=== PATIENT | male | born 1930 | race Caucasian/White ===

== ENCOUNTER 2016-12-03 22:37 | Emergency (ER) | payer OTHER ==
--- NOTE | 2016-12-04 01:36 | ED CLINICAL REPORT ---
Clinical Report - Physicians/Mid Levels [facility] [address] [place] [address] 12/03/2016 22:41 Patient: KYLEE HENSON Time Seen: 22:54; initial patient contact. Arrived- By ambulance. Historian- patient. HISTORY OF PRESENT ILLNESS Chief Complaint: DECREASED MENTAL STATUS. This started just prior to arrival and is now gone. The patient has "felt strange". halfway resident. History of chronic dementia. No weakness, numbness or recent fall. No difficulty walking. Usually has normal mobility. Similar symptoms previously: None. Recent medical care: Not recently seen/assessed. REVIEW OF SYSTEMS No fever, headache, head injury, dizziness or chest pain. No difficulty breathing, blurred vision, abdominal pain, nausea or diarrhea. No vomiting. All systems otherwise negative, except as recorded above. PAST HISTORY ( CAD. SURGERIES: Demand Pacemaker.). SOCIAL HISTORY Former smoker. No alcohol use or drug use. ADDITIONAL NOTES The nursing notes have been reviewed. PHYSICAL EXAM Vital Signs: 12/03/2016 22:54 BP: 105/52. HR: 74. RR: 18. O2 saturation: 96%. Temp: 98.2 F. Have been reviewed. Hypotensive. Heart rate normal. Respiratory rate normal. Temperature normal. Oxygen saturation normal. Appearance: Alert. No acute distress. Eyes: Pupils equal, round and reactive to light. ENT: Moist mucous membranes. Pharynx normal. Neck: Normal inspection. CVS: Normal heart rate and rhythm. Heart sounds normal. Respiratory: No respiratory distress. Breath sounds normal. Abdomen: Soft and nontender. No organomegaly. The bowel sounds are not abnormal. Skin: Skin warm and dry. Normal skin color. No rash. Extremities: No calf tenderness. No lower extremity edema. Neuro: Alert. The patient is disoriented to time. Alertness is not decreased. Verbal response is not abnormal. Response to pain is not abnormal. No aphasia. No dysphasia or dysarthria. No cerebellar findings. No motor deficit. No sensory deficit. Reflexes normal. LABS, X-RAYS, AND EKG EKG: EKG time: (2300). Rate: 70. Ventricular paced rhythm. Wide QRS- intraventricular conduction delay. Left axis deviation. Normal ST and T waves. Prolonged QTc (514). Prior EKG unavailable. The study has been interpreted contemporaneously by me. The study has been independently viewed by me. The EKG appears to be a good tracing. Interpretation time: 2300. Laboratory Tests: UA-Culture if indicated: (JARED: 12/04/2016 01:17) ( MsgRcvd 12/04/2016 01:32) Final results Test Result Flag Units (Reference) URINE COLOR YELLOW URINE APPEARANCE CLEAR URINE GLUCOSE TRACE (NEGATIVE) URINE BILIRUBIN NEGATIVE (NEGATIVE) URINE KETONE TRACE (NEGATIVE) URINE SPECIFIC GRAVITY 1.020 (1.010-1.030) URINE PH 6.0 (5.0-8.0) URINE PROTEIN NEGATIVE (NEGATIVE) URINE UROBILINOGEN 4.0 EU/dL (0.2-1.0) The urobilinogen reagent area may react with interferingsubstances known to react with Giles's reagent such asp-aminosalicylic acid and sulfonamides. Atypical colorreactions may be obtained in the presence of highconcentrations of p-aminobenzoic acid. The absence ofurobilinogen cannot be determined with this test. URINE NITRITE NEGATIVE (NEGATIVE) URINE BLOOD NEGATIVE (NEGATIVE) URINE LEUK ESTERASE NEGATIVE (NEGATIVE) URINE RBC 0-1 rbc/hpf (0-1) URINE WBC 0-1 wbc/hpf (0-1) URINE EPITHELIAL CELLS 0-1 EPI/hpf (0-5) URINE BACTERIA NONE SEEN (NONE SEEN) URINE COMMENT CULT NOT INDICATED URINE CULTURES ARE SET-UP BASED ON THE FOLLOWING CRITERIA:POSITIVE NITRITEPOSITIVE LEUKOCYTE ESTERASEGREATER THAN 10 WHITE BLOOD CELLSMODERATE (2+) OR GREATER BACTERIA CBC w Diff: (JARED: 12/04/2016 00:35) ( MsgRcvd 12/04/2016 00:44) Final results Test Result Flag Units (Reference) WHITE BLOOD COUNT 5.3 K/uL (4.5-11.5) RED BLOOD COUNT 3.49 L M/uL (4.50-5.90) HEMOGLOBIN 10.3 L gm/dL (13.5-17.5) HEMATOCRIT 31.4 L % (41.0-53.0) MEAN CELL VOLUME 90 fL (80-100) MEAN CORPUSCULAR HGB 30 pg (26-34) MEAN CORPUSCULAR HGB CONC 33 g/dL (31-37) RED CELL DISTRIBUTION WIDTH 15.9 H % (11.6-14.8) PLATELET COUNT 143 L K/uL (150-400) NEUTROPHIL % 73.8 % (50-75) LYMPH % 13.8 L % (25-40) MONO % 11.2 % (3-14) EOSINOPHIL % 0.8 % (0-4) BASOPHIL % 0.4 % (0-2) CMP: (JARED: 12/04/2016 00:35) ( MsgRcvd 12/04/2016 00:58) Final results Test Result Flag Units (Reference) GLUCOSE 174 H mg/dL (70-110) BUN 18 mg/dL (7-18) CREATININE 1.6 H mg/dL (0.6-1.3) Estimated GFR 43.67 mL/min Estimated GFR- 52.93 mL/min Note: Persistent reduction over 3 months in eGFR<60 mL/min/1.73 m2 defines CKD. Patients with eGFR values>=60 mL/min/1.73 m2 may also have CKD if evidence ofpersistent proteinuria. Additional information may be foundat www.kidney.org. SODIUM 141 mmol/L (136-145) POTASSIUM 4.2 mmol/L (3.5-5.1) CHLORIDE 102 mmol/L (98-107) CARBON DIOXIDE 27 mmol/L (21-32) CALCIUM 9.0 mg/dL (8.5-10.1) TOTAL PROTEIN 6.4 g/dL (6.4-8.2) ALBUMIN 3.1 L g/dL (3.3-5.0) BILIRUBIN, TOTAL 0.9 mg/dL (0.0-1.0) ALKALINE PHOSPHATASE 81 U/L (46-116) AST (SGOT) 14 L U/L (15-37) ALT (SGPT) 19 U/L (12-78) . PROGRESS AND PROCEDURES Disposition: Discharged to residential in good and improved condition. Condition: good. CLINICAL IMPRESSION Acute mental status change with confusion. INSTRUCTIONS Your Current Medications: CONTINUE TAKING THE FOLLOWING MEDICATIONS: Flomax Oral. Lasix Oral. Ranitidine HCl Oral. Spironolactone Oral. Warfarin Sodium Oral. Follow-up: Follow up with your doctor in about two days. Call for an appointment. Blood pressure screening was not performed during this visit because the patient has an active diagnosis of hypertension. (Electronically signed by Aldair Upton Dr. 12/04/2016 1:37)
--- NOTE | 2016-12-04 01:36 | ED ORDER SUMMARY ---
..... Patient: KYLEE HENSON OrderSheet [facility] VisitID: [id number] [place] [address] 86y, M Registration Date/Time: 12/03/2016 ORDER SHEET Weight: 81.6 kg (estimated) Allergies: No Known Drug Allergy GENERAL ORDERS: Lubrication Equipment Servicer (Continuous) (22:54 12/03/2016 SBalde R.N. per protocol) (22:54 SBalde R.N.) Pulse oximeter (22:54 12/03/2016 SBalde R.N. per protocol) (22:54 SBalde R.N.) EKG - ER Stat (22:54 12/03/2016 SBalde R.N. per protocol) (23:03 SRedmond) CBC w Diff Urgent (23:36 12/03/2016 Megan Brown) (Ack 23:37 CHagerty ER Diabetes Manager) (0:40 JQuivey R.N.) CMP Urgent (23:36 12/03/2016 Megan Brown) (Ack 23:37 Bibiana ER Diabetes Manager) (0:40 JQuivey R.N.) UA-Culture if indicated Urgent (23:36 12/03/2016 Megan Brown) (Ack 23:37 CHagsarina ER Diabetes Manager) (1:19 EInderbitzen R.N.) MEDICATION ORDERS: IV FLUIDS: IV Saline Lock (22:54 12/03/2016 SBalde R.N. per protocol) (22:54 SBalde R.N.) ORDER SHEET NOTES: [Electronically signed by Aldair Utpon Dr. (01:37 12/04/2016)] [Electronically signed by Markel Smiley R.N. (:12/04/2016)] [Electronically locked/signed by Marekl Smiley R.N. (12/04/2016)]
--- NOTE | 2016-12-04 01:36 | ED NURSING NOTES ---
Clinical Report - Nurses [facility] [address] [place] [address] 12/03/2016 22:41 Patient: KYLEE HENSON TRIAGE Triage time 22:54 Dec 03 2016. Acuity: LEVEL 2. Chief Complaint: ALTERED MENTAL STATUS. Alert. No acute distress. --22:58 Kathy Olivera R.N. 22:54 12/03/16. BP: 105/52. HR: 74. RR: 18. O2 saturation: 96%. Temp: 98.2 F. Pain level now 0/10. --22:58 Kathy Olivera R.N. Weight: 81.6 kg estimated. Height/Length: 72 inches Estimated. BMI: 24.4. --22:54 Kathy Olivera R.N. Medications Ranitidine HCl Oral. --23:37 Kathy Olivera R.N. Flomax Oral. --23:38 Kathy Olivera R.N. Lasix Oral. --23:38 Kathy Olivera R.N. Warfarin Sodium Oral. --23:39 Kathy Olivera R.N. Spironolactone Oral. --23:39 Kathy Olivera R.N. Allergies No Known Drug Allergy. --23:39 Kathy Olivera R.N. History Arrived by EMS. Historian: patient. ( Alert to self and . "I pulled the button on the wall because I felt funny and strange". Denies any pain at this time. "I felt something running through my veins".). This started just prior to arrival. Treatment SIGNAL MANAGER: None. SOCIAL HX: Former smoker. No drug use. No infectious disease exposure. FALL RISK ASSESSMENT: Fall risk assessment completed. No fall risk identified. NUTRITIONAL RISK ASSESSMENT: The nutritional risk assessment revealed no deficiencies. FUNCTIONAL ASSESSMENT: Functional assessment: no impairments noted. LEARNING NEEDS ASSESSMENT: The learning needs assessment revealed no barriers. SKIN INTEGRITY ASSESSMENT: Skin integrity risk assessment completed. No skin integrity risk identified. --22:58 Kathy Olivera R.N. PROBLEMS: CAD. --23:41 Kathy Olivera R.N. ADDITIONAL SURGERIES: Demand Pacemaker. --23:41 Kathy Olivera R.N. Interventions ID band on patient. To room. --22:58 Kathy Olivera R.N. PHYSICAL ASSESSMENT To room via stretcher. RESPIRATORY: Respirations not labored. CVS: Cardiac rhythm: atrial pacing. Capillary refill less than 2 seconds. --23:34 Kathy Olivera R.N. NURSING PROGRESS NOTES 22:54 12/03/2016 Site #1 started prior to arrival by EMS via IV in the right hand with an 20g angiocath. --22:54 Kathy Olivera R.N. EKG time: (2300). EKG was performed by a tech and shown to the ED physician. --22:59 Kathy Olivera R.N. ( ER Provider at bedside.). --23:37 Kathy Olivera R.N. Care transferred and report given (JORGE LUIS Comer). --23:41 Kathy Olivera R.N. 00:38. Patient ID band checked for patient name and birthdate: patient confirmed. Blood samples drawn from the right antecubital space with syringe and 22g butterfly by nurse ; labeled in presence of the patient and sent to lab: rainbow set. --00:42 Johann Yusuf R.N. 00:55 12/04/16. BP: 114/48. HR: 70. RR: 19. O2 saturation: 98% on room air. --00:58 Johann Yusuf R.N. 00:58 Patient reports still unable to void. The patient is calm and resting quietly. GENERAL / NEURO / PSYCH: Patient is calm and cooperative. Affect appears normal. Alert. Oriented X 4. RESPIRATORY: No respiratory distress. SKIN: Skin is warm and dry. --00:58 Johann Yusuf R.N. 01:19 12/04/16. Patient ID band checked for patient name and birthdate: patient confirmed. Instructions provided to collect clean catch urine and patient verbalized understanding. Clean catch urine collected with return of shoaib-colored clear urine; sample sent to lab for urinalysis. Specimen labeled in the presence of the patient. --01:19 Carolann Escobar R.N. electrician wiring, pulse oximeter and NIBP monitor placed on patient. Patient gowned. Head of bed elevated. Two patient identifiers checked. Call light placed in reach. Side rails up x 2. Bed placed in lowest position. Brakes of bed on. --01:49 Markel Smiley R.N. ( Non-emergent transport called. ETA 2.5 hours.). --01:51 Markel Smiley R.N. ( ROunded on patient. INformed him of the wait for his transportation.). --01:57 Markel Smiley R.N. 02:22 12/04/2016 IV Saline Lock Drip IV Discontinued: STOPPED upon discharge. --02:22 Markel Smiley R.N. DISPOSITION / DISCHARGE 02:21 12/04/2016 Site #1 removed upon discharge. Manual pressure and bandage applied. --02:21 Markel Smiley R.N. Departure time: 02:23. Ability to learn limited by poor comprehension and intellectual disability; teaching performed with the patient. Discharge instructions provided and reviewed (EMS and sent to patient's facility). Reviewed warnings. Treatments reviewed. Reviewed referrals for followup. Written instructions provided in Serbian. The patient was discharged (assistance living/nursing facility) and accompanied by EMS. He left the Emergency Department via ambulance and on a stretcher. Driving (EMS). --02:24 Markel Smiley R.N. Condition at departure: stable. --02:24 Markel Smiley R.N. 02:23 12/04/16. BP: 114/48. HR: 77. RR: 20. O2 saturation: 96% on room air. Florentino-Murcia pain scale: 0/10. --02:25 Markel Smiley R.N. Locked/Released at 12/04/2016 2:28 by Markel Smiley R.N.
--- NOTE | 2016-12-04 01:36 | ED ORDER SUMMARY ---
..... Patient: KYLEE HENSON OrderSheet [facility] VisitID: [id number] [place] [address] 86y, M Registration Date/Time: 12/03/2016 ORDER SHEET Weight: 81.6 kg (estimated) Allergies: No Known Drug Allergy GENERAL ORDERS: Cement Despatch Operator (Continuous) (22:54 12/03/2016 SBalde R.N. per protocol) (22:54 SBalde R.N.) Pulse oximeter (22:54 12/03/2016 SBalde R.N. per protocol) (22:54 SBalde R.N.) EKG - ER Stat (22:54 12/03/2016 SBalde R.N. per protocol) (23:03 SRedmond) CBC w Diff Urgent (23:36 12/03/2016 Megan Brown) (Ack 23:37 CHagerty ER Vet Tech) (0:40 JQuivey R.N.) CMP Urgent (23:36 12/03/2016 Megan Brown) (Ack 23:37 Bibiana ER Vet Tech) (0:40 JQuivey R.N.) UA-Culture if indicated Urgent (23:36 12/03/2016 Megan Brown) (Ack 23:37 CHagsarina ER Vet Tech) (1:19 EInderbitzen R.N.) MEDICATION ORDERS: IV FLUIDS: IV Saline Lock (22:54 12/03/2016 SBalde R.N. per protocol) (22:54 SBalde R.N.) ORDER SHEET NOTES: [Electronically signed by Aldair Upton Dr. (01:37 12/04/2016)] [Electronically signed by Markel Smiley R.N. (:12/04/2016)] [Electronically locked/signed by Markel Smiley R.N. (12/04/2016)]
--- NOTE | 2016-12-04 01:36 | ED NURSING NOTES ---
Clinical Report - Nurses [facility] [address] [place] [address] 12/03/2016 22:41 Patient: KYLEE HENSON TRIAGE Triage time 22:54 Dec 03 2016. Acuity: LEVEL 2. Chief Complaint: ALTERED MENTAL STATUS. Alert. No acute distress. --22:58 Kathy Olivera R.N. 22:54 12/03/16. BP: 105/52. HR: 74. RR: 18. O2 saturation: 96%. Temp: 98.2 F. Pain level now 0/10. --22:58 Kathy Olivera R.N. Weight: 81.6 kg estimated. Height/Length: 72 inches Estimated. BMI: 24.4. --22:54 Kathy Olivera R.N. Medications Ranitidine HCl Oral. --23:37 Kathy Olivera R.N. Flomax Oral. --23:38 Kathy Olivera R.N. Lasix Oral. --23:38 Kathy Olivera R.N. Warfarin Sodium Oral. --23:39 Kathy Olivera R.N. Spironolactone Oral. --23:39 Kathy Olivera R.N. Allergies No Known Drug Allergy. --23:39 Kathy Olivera R.N. History Arrived by EMS. Historian: patient. ( Alert to self and . "I pulled the button on the wall because I felt funny and strange". Denies any pain at this time. "I felt something running through my veins".). This started just prior to arrival. Treatment DIRECTOR QUALITY SYSTEMS: None. SOCIAL HX: Former smoker. No drug use. No infectious disease exposure. FALL RISK ASSESSMENT: Fall risk assessment completed. No fall risk identified. NUTRITIONAL RISK ASSESSMENT: The nutritional risk assessment revealed no deficiencies. FUNCTIONAL ASSESSMENT: Functional assessment: no impairments noted. LEARNING NEEDS ASSESSMENT: The learning needs assessment revealed no barriers. SKIN INTEGRITY ASSESSMENT: Skin integrity risk assessment completed. No skin integrity risk identified. --22:58 Kathy Olivera R.N. PROBLEMS: CAD. --23:41 Kathy Olivera R.N. ADDITIONAL SURGERIES: Demand Pacemaker. --23:41 Kathy Olivera R.N. Interventions ID band on patient. To room. --22:58 Kathy Olivera R.N. PHYSICAL ASSESSMENT To room via stretcher. RESPIRATORY: Respirations not labored. CVS: Cardiac rhythm: atrial pacing. Capillary refill less than 2 seconds. --23:34 Kathy Olivera R.N. NURSING PROGRESS NOTES 22:54 12/03/2016 Site #1 started prior to arrival by EMS via IV in the right hand with an 20g angiocath. --22:54 Kathy Olivera R.N. EKG time: (2300). EKG was performed by a tech and shown to the ED physician. --22:59 Kathy Olivera R.N. ( ER Provider at bedside.). --23:37 Kathy Olivera R.N. Care transferred and report given (JORGE LUIS Comer). --23:41 Kathy Olivera R.N. 00:38. Patient ID band checked for patient name and birthdate: patient confirmed. Blood samples drawn from the right antecubital space with syringe and 22g butterfly by nurse ; labeled in presence of the patient and sent to lab: rainbow set. --00:42 Johann Yusuf R.N. 00:55 12/04/16. BP: 114/48. HR: 70. RR: 19. O2 saturation: 98% on room air. --00:58 Johann Yusuf R.N. 00:58 Patient reports still unable to void. The patient is calm and resting quietly. GENERAL / NEURO / PSYCH: Patient is calm and cooperative. Affect appears normal. Alert. Oriented X 4. RESPIRATORY: No respiratory distress. SKIN: Skin is warm and dry. --00:58 Johann Yusuf R.N. 01:19 12/04/16. Patient ID band checked for patient name and birthdate: patient confirmed. Instructions provided to collect clean catch urine and patient verbalized understanding. Clean catch urine collected with return of shoaib-colored clear urine; sample sent to lab for urinalysis. Specimen labeled in the presence of the patient. --01:19 Carolann Escobar R.N. teletypesetter monitor, pulse oximeter and NIBP monitor placed on patient. Patient gowned. Head of bed elevated. Two patient identifiers checked. Call light placed in reach. Side rails up x 2. Bed placed in lowest position. Brakes of bed on. --01:49 Markel Smiley R.N. ( Non-emergent transport called. ETA 2.5 hours.). --01:51 Markel Smiley R.N. ( ROunded on patient. INformed him of the wait for his transportation.). --01:57 Markel Smiley R.N. 02:22 12/04/2016 IV Saline Lock Drip IV Discontinued: STOPPED upon discharge. --02:22 Markel Smiley R.N. DISPOSITION / DISCHARGE 02:21 12/04/2016 Site #1 removed upon discharge. Manual pressure and bandage applied. --02:21 Markel Smiley R.N. Departure time: 02:23. Ability to learn limited by poor comprehension and intellectual disability; teaching performed with the patient. Discharge instructions provided and reviewed (EMS and sent to patient's facility). Reviewed warnings. Treatments reviewed. Reviewed referrals for followup. Written instructions provided in Luxembourgish. The patient was discharged (assistance living/nursing facility) and accompanied by EMS. He left the Emergency Department via ambulance and on a stretcher. Driving (EMS). --02:24 Markel Smiley R.N. Condition at departure: stable. --02:24 Markel Smiley R.N. 02:23 12/04/16. BP: 114/48. HR: 77. RR: 20. O2 saturation: 96% on room air. Florentino-Murcia pain scale: 0/10. --02:25 Markel Smiley R.N. Locked/Released at 12/04/2016 2:28 by Markel Smiley R.N.
--- NOTE | 2016-12-04 02:30 | ED MED RECONCILIATION SUMMARY ---
Patient: KYLEE HENSON Medication Reconciliation Report [facility] VisitID: [id number] [address] [place] [address] 86y, M Registration Date/Time: 12/03/2016 Weight: 81.6 kg Height/Length: 72 in. BMI: 24.4 ALLERGIES: No Known Drug Allergy The patient's Home Medications are listed below: CONTINUE TAKING THE FOLLOWING MEDICATIONS: Flomax Oral Lasix Oral Ranitidine HCl Oral Spironolactone Oral Warfarin Sodium Oral The source(s) of the original Home Medication information: Not obtained. The following Medications were given to the patient in the Emergency Department: None. The following Medications were prescribed to the patient: None.
--- NOTE | 2016-12-04 02:30 | ED MAR SUMMARY ---
..... Medication Administration Record [facility] [address] [place], [place] [id number] Patient: KYLEE HENSON Visit ID: [id number] 86y, M Weight: 81.6 kg Height/Length: 72 in BMI: 24.4 ALLERGIES: No Known Drug Allergy
--- NOTE | 2016-12-04 02:30 | ED DISCHARGE INSTRUCTIONS ---
Patient: KYLEE HENSON General Instructions [facility] VisitID: [id number] [place] [address] 86y, M Registration Date/Time: 12/03/2016 Acute mental status change with confusion. INSTRUCTIONS Your Current Medications: CONTINUE TAKING THE FOLLOWING MEDICATIONS: Flomax Oral. Lasix Oral. Ranitidine HCl Oral. Spironolactone Oral. Warfarin Sodium Oral. Follow-up: Follow up with your doctor in about two days. Call for an appointment. Blood pressure screening was not performed during this visit because the patient has an active diagnosis of hypertension. ADDITIONAL INFORMATION Confusion Confusion is a change in a persons ability to think clearly. There may be trouble recognizing familiar people and places, or knowing what day it is. Memory, judgement and decision-making may also be affected. In severe cases there may be limited or no response to verbal commands. Confusion may occur suddenly or develop gradually over time. There are many injuries and medical conditions that can cause this problem. These include brain injury, side effect of medication, intoxication, withdrawal from drugs, infection, stroke, dementia,mental illness and other causes. The exam and testing today did not show the cause of this problem. Further testing will be needed. Specific treatment and hope for recovery depend on the cause of this symptom. Home Care: Be sure someone is with the confused person at all times. He/she should not be left alone or unsupervised. Keep medicines (prescription and [id number]) in a secure place, under the caregivers control. A person with confusion should not be allowed to take their own medicines.This needs to be supervised by the caregiver. Ways to help a person with confusion: Activities:Establish a daily routine. Change can be a source of stress for someone with confusion. Make a time schedule for common tasks such as: bathing, dressing, taking medicines, meals, going for walks, shopping, naps and bed time. Communication:Speak slowly and clearly with a gentle tone of voice. Use short simple words and sentences. Ask one question at a time. Do not interrupt, criticize or argue. Be calm and supportive. Use friendly facial expressions. Use pointing and touching to help communicate. If there has been loss of long-term memory, do not ask questions about past events. This would only cause frustration for the person. Behavioral tips:Use lists, signs, family photos, clocks and calendars as memory aids. Label cabinets and drawers. Try to distract, not confront, the patient. When he/she becomes frustrated or upset, redirect his/her attention to eating or some other activity of interest. Medical-Legal tips: If this proves to be a permanent condition, talk to your doctor and/or valve inserter about getting a Power of Pressurizer for health care and for financial decisions. It is best to do this while the person can still sign legal documents and make his/margie own legal decisions. Otherwise, a court order will be required. Follow-Up with the patients doctor or as advised by our staff for further testing. Get Prompt Medical Attention if any of the following occur: Frequent falling Refusal to eat or drink Violent behavior or behavior becomes too difficult to manage at home Increased drowsiness, or failure to respond normally Increasing headache, nausea or repeated vomiting Numbness or weakness of the face, one arm or one leg Slurred speech, trouble speaking, walking or seeing Fainting spell, dizziness or seizure Unexplained fever over 100.4 F (38.0 C) oral You have been given the following additional information: Confusion (Electronically signed by Aldair Upton Dr. 12/04/2016 1:37)
--- NOTE | 2016-12-04 02:30 | ED MED RECONCILIATION SUMMARY ---
Patient: KYLEE HENSON Medication Reconciliation Report [facility] VisitID: [id number] [address] [place] [address] 86y, M Registration Date/Time: 12/03/2016 Weight: 81.6 kg Height/Length: 72 in. BMI: 24.4 ALLERGIES: No Known Drug Allergy The patient's Home Medications are listed below: CONTINUE TAKING THE FOLLOWING MEDICATIONS: Flomax Oral Lasix Oral Ranitidine HCl Oral Spironolactone Oral Warfarin Sodium Oral The source(s) of the original Home Medication information: Not obtained. The following Medications were given to the patient in the Emergency Department: None. The following Medications were prescribed to the patient: None.
--- NOTE | 2016-12-04 02:30 | ED DISCHARGE INSTRUCTIONS ---
Patient: KYLEE HENSON General Instructions [facility] VisitID: [id number] [place] [address] 86y, M Registration Date/Time: 12/03/2016 Acute mental status change with confusion. INSTRUCTIONS Your Current Medications: CONTINUE TAKING THE FOLLOWING MEDICATIONS: Flomax Oral. Lasix Oral. Ranitidine HCl Oral. Spironolactone Oral. Warfarin Sodium Oral. Follow-up: Follow up with your doctor in about two days. Call for an appointment. Blood pressure screening was not performed during this visit because the patient has an active diagnosis of hypertension. ADDITIONAL INFORMATION Confusion Confusion is a change in a persons ability to think clearly. There may be trouble recognizing familiar people and places, or knowing what day it is. Memory, judgement and decision-making may also be affected. In severe cases there may be limited or no response to verbal commands. Confusion may occur suddenly or develop gradually over time. There are many injuries and medical conditions that can cause this problem. These include brain injury, side effect of medication, intoxication, withdrawal from drugs, infection, stroke, dementia,mental illness and other causes. The exam and testing today did not show the cause of this problem. Further testing will be needed. Specific treatment and hope for recovery depend on the cause of this symptom. Home Care: Be sure someone is with the confused person at all times. He/she should not be left alone or unsupervised. Keep medicines (prescription and [id number]) in a secure place, under the caregivers control. A person with confusion should not be allowed to take their own medicines.This needs to be supervised by the caregiver. Ways to help a person with confusion: Activities:Establish a daily routine. Change can be a source of stress for someone with confusion. Make a time schedule for common tasks such as: bathing, dressing, taking medicines, meals, going for walks, shopping, naps and bed time. Communication:Speak slowly and clearly with a gentle tone of voice. Use short simple words and sentences. Ask one question at a time. Do not interrupt, criticize or argue. Be calm and supportive. Use friendly facial expressions. Use pointing and touching to help communicate. If there has been loss of long-term memory, do not ask questions about past events. This would only cause frustration for the person. Behavioral tips:Use lists, signs, family photos, clocks and calendars as memory aids. Label cabinets and drawers. Try to distract, not confront, the patient. When he/she becomes frustrated or upset, redirect his/her attention to eating or some other activity of interest. Medical-Legal tips: If this proves to be a permanent condition, talk to your doctor and/or solutions manager about getting a Power of Lamp Shades Supervisor for health care and for financial decisions. It is best to do this while the person can still sign legal documents and make his/margie own legal decisions. Otherwise, a court order will be required. Follow-Up with the patients doctor or as advised by our staff for further testing. Get Prompt Medical Attention if any of the following occur: Frequent falling Refusal to eat or drink Violent behavior or behavior becomes too difficult to manage at home Increased drowsiness, or failure to respond normally Increasing headache, nausea or repeated vomiting Numbness or weakness of the face, one arm or one leg Slurred speech, trouble speaking, walking or seeing Fainting spell, dizziness or seizure Unexplained fever over 100.4 F (38.0 C) oral You have been given the following additional information: Confusion (Electronically signed by Aldair Upton Dr. 12/04/2016 1:37)
--- NOTE | 2016-12-04 02:30 | ED MAR SUMMARY ---
..... Medication Administration Record [facility] [address] [place], [place] [id number] Patient: KYLEE HENSON Visit ID: [id number] 86y, M Weight: 81.6 kg Height/Length: 72 in BMI: 24.4 ALLERGIES: No Known Drug Allergy
== END 2016-12-04 02:25 | disposition home or self-care (01) ==
LOC: ED SRH 22:37
DX: R41.82 Altered mental status, unspecified (principal); R41.0 Disorientation, unspecified
CPT/HCPCS: 90004; 90100; 95059